=== PATIENT | female | born 1995 | race African-American/Black ===

== ENCOUNTER 2017-06-20 06:08 | Emergency (ER) | payer OTHER ==
[2017-06-20 06:36] LABS: Bilirubin Negative (Negative); Blood, Urine Negative (Negative); Clarity Clear (Clear); Glucose, Urine (Dipstick) Negative (Negative); Leukocyte Small (Negative); Nitrite Negative (Negative); Pregnancy Test - Urine (BHCG) Negative (Negative); Protein, Urine (Dipstick) Negative (Neg-Trace); Specific Gravity, Urine 1.025 (1.005-1.030); Urobilinogen 0.2 mg/dL (0.2-1.0)
[2017-06-20 06:37] LABS: Pregu Control Background? CLEAR/WHITE (CLR/WHITE); Pregu Control Bar Appear? YES (CONTROL BAR); Specific Gravity 1.025 (1.002-1.036)
[2017-06-20] MEDS ORDERED: Ondansetron ODT 4 MG TAB ONE (06:38)
[2017-06-20 07:01] LABS: Bacteria/HPF Rare-Few HPF (None Seen); Other Microscopic Description NO; RBC/HPF None Seen HPF (0-3); WBC/HPF 0-3 HPF (0-3)
== END 2017-06-20 07:06 | disposition home or self-care (01) ==
LOC: NAV ERS 06:08
DX: R11.2 Nausea with vomiting, unspecified (principal)
CPT/HCPCS: 81003; 81015; 81025; 99284; Q0162

== ENCOUNTER 2017-09-16 10:43 | Emergency (ER) | payer OTHER ==
[2017-09-16] MEDS ORDERED: Ondansetron ODT 4 MG TAB ONE (11:29)
[2017-09-16] MEDS ORDERED: Ketorolac Tromethamine 30 MG/ML VIAL ONE (11:33)
== END 2017-09-16 11:58 | disposition home or self-care (01) ==
LOC: NAV ERS 10:43
DX: G43.009 Migraine without aura, not intractable, without status migrainosus (principal)
CPT/HCPCS: 96372; J1885; Q0162

== ENCOUNTER 2018-03-09 00:02 | Emergency (ER) | payer OTHER ==
[2018-03-09] MEDS ORDERED: Ketorolac Tromethamine 60 MG/2 ML VIAL ONE (00:32)
[2018-03-09 00:47] LABS: Bilirubin Negative (Negative); Blood, Urine Large (Negative); Clarity Clear (Clear); Glucose, Urine (Dipstick) Negative (Negative); Leukocyte Trace (Negative); Nitrite Negative (Negative); Protein, Urine (Dipstick) 30 mg/dL (Neg-Trace); Urobilinogen 0.2 mg/dL (0.2-1.0)
[2018-03-09 00:51] LABS: Bacteria/HPF 1+ HPF (None Seen); Pregnancy Test - Urine (BHCG) Negative (Negative); RBC/HPF 21-50 HPF (0-3)
[2018-03-09 00:52] LABS: Pregu Control Background? CLEAR/WHITE (CLR/WHITE); Pregu Control Bar Appear? YES (CONTROL BAR)
== END 2018-03-09 01:09 | disposition home or self-care (01) ==
LOC: NAV ERS 00:02
DX: N94.6 Dysmenorrhea, unspecified (principal)
CPT/HCPCS: 81003; 81015; 81025; 96372; J1885

== ENCOUNTER 2018-04-06 18:40 | Emergency (ER) | payer OTHER ==
[2018-04-06 19:20] LABS: Bilirubin Small (Negative); Blood, Urine Trace (Negative); Glucose, Urine (Dipstick) Negative (Negative); Leukocyte Trace (Negative); Nitrite Negative (Negative); Protein, Urine (Dipstick) 100 mg/dL (Neg-Trace); Specific Gravity, Urine 1.025 (1.005-1.030)
[2018-04-06 19:26] LABS: Clarity SL HAZY (Clear)
[2018-04-06 19:27] LABS: Pregnancy Test - Urine (BHCG) Negative (Negative); Pregu Control Background? CLEAR/WHITE (CLR/WHITE); Pregu Control Bar Appear? YES (CONTROL BAR); Specific Gravity 1.025 (1.002-1.036)
[2018-04-06 19:40] LABS: Bacteria/HPF 1+ HPF (None Seen); RBC/HPF 0-3 HPF (0-3); Transitional Epithelial 0-3 HPF (0-3); WBC/HPF 0-3 HPF (0-3)
[2018-04-06] MEDS ORDERED: Cyclobenzaprine 10 MG TAB ONE (19:41)
== END 2018-04-06 20:03 | disposition home or self-care (01) ==
LOC: NAV ERS 18:40
DX: M54.5 Low back pain (principal)
CPT/HCPCS: 81003; 81015; 81025; 87086; 99283

== ENCOUNTER 2018-06-08 16:21 | Emergency (ER) | payer OTHER | END 2018-06-08 17:14 | disposition home or self-care (01) | LOC: NAV ERS 16:21 | DX: S39.012A Strain of muscle, fascia and tendon of lower back, initial encounter (principal); Z79.899 Other long term (current) drug therapy; X50.9XXA Other and unspecified overexertion or strenuous movements or postures, initial encounter; Y92.89 Other specified places as the place of occurrence of the external cause | CPT/HCPCS: 99283 ==

== ENCOUNTER 2018-07-17 19:33 | Emergency (ER) | payer OTHER, SELFPAY | END 2018-07-17 20:00 | disposition home or self-care (01) | LOC: NAV ERS 19:33 | DX: R51 Headache (principal) | CPT/HCPCS: 99283 ==

== ENCOUNTER 2018-08-08 18:54 | Emergency (ER) | payer OTHER, SELFPAY ==
[2018-08-08] MEDS ORDERED: Ibuprofen 200 MG TAB ONE (19:41)
== END 2018-08-08 19:48 | disposition home or self-care (01) ==
LOC: NAV ERS 18:54
DX: K00.6 Disturbances in tooth eruption (principal)
CPT/HCPCS: 99282

== ENCOUNTER 2018-09-01 02:26 | Emergency (ER) | payer OTHER | END 2018-09-01 03:01 | disposition home or self-care (01) | LOC: NAV ERS 02:26 | DX: M79.10 Myalgia, unspecified site (principal) | CPT/HCPCS: 99281 ==

== ENCOUNTER 2018-09-20 20:37 | Emergency (ER) | payer OTHER ==
[2018-09-20] MEDS ORDERED: Cyclobenzaprine 10 MG TAB ONE (21:28)
== END 2018-09-20 21:30 | disposition home or self-care (01) ==
LOC: NAV ERS 20:37
DX: S39.012A Strain of muscle, fascia and tendon of lower back, initial encounter (principal); X58.XXXA Exposure to other specified factors, initial encounter
CPT/HCPCS: 99283

== ENCOUNTER 2018-11-07 17:24 | Emergency (ER) | payer OTHER ==
[2018-11-07] MEDS ORDERED: Ondansetron ODT 4 MG TAB ONE (18:05)
[2018-11-07 18:12] LABS: Bilirubin Negative (Negative); Blood, Urine Negative (Negative); Clarity Clear (Clear); Glucose, Urine (Dipstick) Negative (Negative); Leukocyte Negative (Negative); Nitrite Negative (Negative); Protein, Urine (Dipstick) Negative (Neg-Trace); Urobilinogen 0.2 mg/dL (0.2-1.0)
[2018-11-07 18:25] LABS: Pregnancy Test - Urine (BHCG) Negative (Negative); Pregu Control Background? CLEAR/WHITE (CLR/WHITE); Pregu Control Bar Appear? YES (CONTROL BAR)
== END 2018-11-07 18:45 | disposition home or self-care (01) ==
LOC: NAV ERS 17:24
DX: B34.9 Viral infection, unspecified (principal)
CPT/HCPCS: 81003; 81025; 99284; Q0162

== ENCOUNTER 2018-12-06 07:08 | Emergency (ER) | payer OTHER ==
[2018-12-06 07:37] LABS: Bilirubin Negative (Negative); Blood, Urine Negative (Negative); Glucose, Urine (Dipstick) Negative (Negative); Leukocyte Negative (Negative); Nitrite Negative (Negative); Protein, Urine (Dipstick) Negative (Neg-Trace); Urobilinogen 0.2 mg/dL (0.2-1.0)
[2018-12-06] MEDS ORDERED: Ondansetron ODT 4 MG TAB ONE (07:37)
[2018-12-06 07:38] LABS: Clarity Hazy (Clear)
[2018-12-06 07:39] LABS: Pregnancy Test - Urine (BHCG) Negative (Negative); Pregu Control Background? CLEAR/WHITE (CLR/WHITE); Pregu Control Bar Appear? YES (CONTROL BAR); Specific Gravity 1.015 (1.002-1.036)
== END 2018-12-06 07:56 | disposition home or self-care (01) ==
LOC: NAV ERS 07:08
DX: R11.2 Nausea with vomiting, unspecified (principal); R10.30 Lower abdominal pain, unspecified
CPT/HCPCS: 81003; 81025; 99284; Q0162

== ENCOUNTER 2020-02-14 14:10 | Emergency (ER) | payer SELFPAY ==
[2020-02-14] MEDS ORDERED: Sodium Chloride 0.9% 1,000 ML ONE (14:29)
[2020-02-14] MEDS ORDERED: Ondansetron PF 4 MG/2 ML Vial ONE (14:29)
[2020-02-14 14:51] LABS: #Basophils 0.1 thou/uL (0.0-0.2); #Lymphocytes 1.8 thou/uL (1.20-3.40); #Monocytes 0.4 thou/uL (0.11-0.59); #Neutrophils 10.9 thou/uL (1.40-6.50); %Basophils 0.9 % (0.0-1.0); %Eosinophils 0.1 % (0.0-10.0); %Lymphocytes 13.3 % (21.0-51.0); %Monocytes 2.8 % (0.0-10.0); %Neutrophils 82.8 % (42.0-75.0); Hemoglobin 11.3 g/dL (12.0-16.0); Mean Corpuscular HGB CONC 30.7 g/dL (32.0-36.0); Mean Corpuscular Hemoglobin 23.6 pg (27.0-31.0); Mean Corpuscular Volume 76.9 fL (78.0-98.0); Mean Platelet Volume 8.8 fL (7.4-10.4); Platelet Count 197 thou/uL (130-400); Red Blood Cell (RBC) Count 4.78 mill/uL (4.20-5.40); White Blood Cell (WBC) Count 13.1 thou/uL (4.8-10.8)
[2020-02-14 14:52] LABS: ALT (SGPT) 10 U/L (8-55); AST (SGOT) 20 U/L (5-34); Albumin 4.7 g/dL (3.5-5.0); Alkaline Phosphatase 62 U/L (40-110); Anion Gap 21 mmol/L (10-20); BUN (Urea Nitrogen) 8 mg/dL (7.0-18.7); Bilirubin, Total 0.3 mg/dL (0.2-1.2); Calc. Creatinine Clearance 0 mL/min (70-130); Calcium 9.6 mg/dL (7.8-10.44); Carbon Dioxide 17 mmol/L (22-29); Chloride 105 mmol/L (98-107); Estimated GFR-MDRD Greater than 90; Globulin 3.4 g/dL (2.4-3.5); Glucose 135 mg/dL (70-105); Lipase 5 U/L (8-78); Potassium 3.2 mmol/L (3.5-5.1); Protein, Total 8.1 g/dL (6.0-8.3); Sodium 140 mmol/L (136-145)
[2020-02-14 14:58] LABS: BHCG - Serum Negative (NEGATIVE); Pregs Control Bar Appear? YES (CONTROL BAR)
[2020-02-14 15:13] LABS: Bilirubin Negative (Negative); Blood, Urine Negative (Negative); Clarity Clear (Clear); Glucose, Urine (Dipstick) Negative (Negative); Ketone, Urine Negative (Negative); Leukocyte Negative (Negative); Nitrite Negative (Negative); Protein, Urine (Dipstick) 100 mg/dL (Neg-Trace); Urobilinogen 0.2 mg/dL (Less than 2)
[2020-02-14 15:16] LABS: Specific Gravity, Urine Greater/Equal 1.030 (1.005-1.030)
[2020-02-14 15:18] LABS: Bacteria/HPF None Seen HPF (None Seen); Squamous Epithelial 0-3 HPF (0-3); WBC/HPF 0-3 HPF (0-3)
[2020-02-14 15:27] LABS: Hypochromia SLIGHT = 6-15 cells (100X) (0-5/hpf); MDiff Complete? YES; Microcytosis SLIGHT = 6-15 cells (100X) (0-5/hpf); Platelet Morphology Comment Appears Adequate
[2020-02-14] MEDS ORDERED: Potassium Chloride 20 MEQ TAB ONE (15:30)
== END 2020-02-14 15:48 | disposition home or self-care (01) ==
LOC: NAV ERS 14:10
DX: E87.6 Hypokalemia (principal); R11.2 Nausea with vomiting, unspecified; F32.9 Major depressive disorder, single episode, unspecified; Z79.899 Other long term (current) drug therapy
CPT/HCPCS: 80053; 81003; 81015; 83690; 84703; 85025; 96361; 96374; J2405; J7050

== ENCOUNTER 2020-09-25 13:31 | Emergency (ER) | payer SELFPAY ==
[2020-09-25] MEDS ORDERED: Ondansetron PF 4 MG/2 ML Vial ONE (14:07)
[2020-09-25] MEDS ORDERED: Sodium Chloride 0.9% 1,000 ML ONE (14:07)
[2020-09-25 14:13] LABS: Bilirubin Negative (Negative); Blood, Urine Trace (Negative); Clarity Clear (Clear); Glucose, Urine (Dipstick) Negative (Negative); Ketone, Urine Negative (Negative); Leukocyte Negative (Negative); Nitrite Negative (Negative); Protein, Urine (Dipstick) 100 mg/dL (Neg-Trace); Urobilinogen 0.2 mg/dL (Less than 2); pH, Urine 8.5 (5.0-9.0)
[2020-09-25 14:15] LABS: Bacteria/HPF Rare-Few HPF (None Seen); RBC/HPF 0-3 HPF (0-3); Squamous Epithelial 0-3 HPF (0-3); WBC/HPF None Seen HPF (0-3)
[2020-09-25 14:19] LABS: BHCG - Serum Negative (NEGATIVE); Pregs Control Bar Appear? YES (CONTROL BAR)
[2020-09-25 14:29] LABS: ALT (SGPT) 10 U/L (8-55); AST (SGOT) 17 U/L (5-34); Albumin 4.5 g/dL (3.5-5.0); Alkaline Phosphatase 64 U/L (40-110); Anion Gap 14 mmol/L (10-20); BUN (Urea Nitrogen) 9 mg/dL (7.0-18.7); Bilirubin, Total 0.3 mg/dL (0.2-1.2); Calc. Creatinine Clearance 0 mL/min (70-130); Calcium 9.3 mg/dL (7.8-10.44); Carbon Dioxide 24 mmol/L (22-29); Chloride 105 mmol/L (98-107); Globulin 3.3 g/dL (2.4-3.5); Glucose 101 mg/dL (70-105); Lipase 16 U/L (8-78); Potassium 3.4 mmol/L (3.5-5.1); Protein, Total 7.8 g/dL (6.0-8.3); Sodium 140 mmol/L (136-145)
[2020-09-25 14:36] LABS: Hemoglobin 11.1 g/dL (12.0-16.0); Lymphocytes 17 % (21-51); MDiff Complete? YES; Mean Corpuscular HGB CONC 29.5 g/dL (32.0-36.0); Mean Corpuscular Hemoglobin 23.1 pg (27.0-31.0); Mean Corpuscular Volume 78.6 fL (78.0-98.0); Mean Platelet Volume 9.2 fL (7.4-10.4); Monocytes 1 % (0-10); Neutrophil 82 % (42-75); Platelet Count 207 thou/uL (130-400); Platelet Morphology Comment Appears Adequate; RBC Distribution Width 16.3 % (11.5-14.5); RBC Morphology Normal; Red Blood Cell (RBC) Count 4.81 mill/uL (4.20-5.40); White Blood Cell (WBC) Count 7.3 thou/uL (4.8-10.8)
== END 2020-09-25 15:03 | disposition home or self-care (01) ==
LOC: NAV ERS 13:31
DX: R11.2 Nausea with vomiting, unspecified (principal)
CPT/HCPCS: 80053; 81003; 81015; 83690; 84703; 85025; 96374; J2405; J7050

== ENCOUNTER 2023-04-24 04:57 | Emergency (ER) | payer BC ==
[2023-04-24] MEDS ORDERED: Ibuprofen 200 MG TAB ONE (05:25)
== END 2023-04-24 05:33 | disposition home or self-care (01) ==
LOC: NAV ERS 04:57
DX: S29.012A Strain of muscle and tendon of back wall of thorax, initial encounter (principal); M54.12 Radiculopathy, cervical region; X50.1XXA Overexertion from prolonged static or awkward postures, initial encounter
CPT/HCPCS: 99283

== ENCOUNTER 2023-05-01 18:37 | Emergency (ER) | payer BC | END 2023-05-01 20:33 | disposition home or self-care (01) | LOC: NAV ERS 18:37 | DX: S29.012A Strain of muscle and tendon of back wall of thorax, initial encounter (principal); X50.0XXA Overexertion from strenuous movement or load, initial encounter; Y93.F2 Activity, caregiving, lifting; Y92.69 Other specified industrial and construction area as the place of occurrence of the external cause | CPT/HCPCS: 72072 ==

== ENCOUNTER 2023-07-24 19:31 | Emergency (ER) | payer BC ==
[2023-07-24] MEDS ORDERED: Ibuprofen 200 MG TAB ONE (19:53)
== END 2023-07-24 20:47 | disposition home or self-care (01) ==
LOC: NAV ERS 19:31
DX: B34.9 Viral infection, unspecified (principal); J06.9 Acute upper respiratory infection, unspecified
CPT/HCPCS: 87635; 87804; 99283

== ENCOUNTER 2023-09-07 04:14 | Emergency (ER) | payer BC ==
[2023-09-07] MEDS ORDERED: Ibuprofen 800 MG TAB ONE (05:25)
[2023-09-07 05:35] LABS: Pregnancy Test - Urine (BHCG) Negative (Negative); Pregu Control Background? CLEAR/WHITE (CLR/WHITE); Pregu Control Bar Appear? YES (CONTROL BAR)
[2023-09-07 05:41] LABS: Influenza A by NAA Not Detected (NotDetected); Influenza B by NAA Not Detected (NotDetected); SARS-CoV-2 NAA Rapid Test Not Detected (NotDetected)
== END 2023-09-07 05:58 | disposition home or self-care (01) ==
LOC: NAV ERS 04:14
DX: B34.9 Viral infection, unspecified (principal)
CPT/HCPCS: 81025; 87081; 87430; 99283

== ENCOUNTER 2023-10-06 04:39 | Emergency (ER) | payer BC | END 2023-10-06 05:05 | disposition home or self-care (01) | LOC: NAV ERS 04:39 | DX: M54.50 Low back pain, unspecified (principal); M54.6 Pain in thoracic spine | CPT/HCPCS: 99283 ==

== ENCOUNTER 2024-02-07 12:14 | Emergency (ER) | payer BC ==
[2024-02-07 13:34] LABS: #Basophils 0.1 thou/uL (0.0-0.2); #Lymphocytes 2.1 thou/uL (1.20-3.40); #Monocytes 0.5 thou/uL (0.11-0.59); #Neutrophils 5.3 thou/uL (1.40-6.50); %Basophils 1.1 % (0.0-1.0); %Eosinophils 0.2 % (0.0-10.0); %Lymphocytes 25.7 % (21.0-51.0); %Monocytes 6.5 % (0.0-10.0); %Neutrophils 66.3 % (42.0-75.0); Hematocrit 42.4 % (36.0-47.0); Hemoglobin 13.1 g/dL (12.0-16.0); Mean Corpuscular Hemoglobin 23.5 pg (27.0-31.0); Mean Corpuscular Volume 75.9 fl (78.0-98.0); Mean Platelet Volume 7.6 fL (7.4-10.4); Platelet Count 195 10x3/uL (130-400); RBC Distribution Width 14.2 % (11.5-14.5); Red Blood Cell (RBC) Count 5.59 mill/uL (4.20-5.40)
[2024-02-07] MEDS ORDERED: Ondansetron PF 4 MG/2 ML Vial ONE (13:53)
[2024-02-07] MEDS ORDERED: Sodium Chloride 0.9% 1,000 ML ONE (13:53)
[2024-02-07 14:20] LABS: Bilirubin Small (Negative); Blood, Urine Negative (Negative); Glucose, Urine (Dipstick) Negative (Negative); Ketone, Urine > or equal to 80 mg/dL (Negative); Leukocyte Negative (Negative); Nitrite Negative (Negative); Protein, Urine (Dipstick) 30 mg/dL (Neg-Trace); Specific Gravity, Urine 1.025 (1.005-1.030); pH, Urine 6.5 (5.0-9.0)
[2024-02-07 14:32] LABS: Clarity Hazy (Clear)
[2024-02-07 14:33] LABS: CAUTI Indications for Culture Pregnancy; Mucous/LPF 3+ LPF (<2+); RBC/HPF 0-3 HPF (0-3); Squamous Epithelial 0-3 HPF (0-3); Urine Culture Reflex Yes Yes; WBC/HPF 0-3 HPF (0-3)
[2024-02-07 14:34] LABS: Pregnancy Test - Urine (BHCG) POSITIVE (Negative); Pregu Control Background? CLEAR/WHITE (CLR/WHITE); Pregu Control Bar Appear? YES (CONTROL BAR); Specific Gravity 1.025 (1.002-1.036)
[2024-02-07 15:08] LABS: Albumin 4.1 g/dL (3.5-5.0); Bilirubin, Total 0.5 mg/dL (0.2-1.2); Calcium 9.5 mg/dL (7.8-10.44); Globulin 3.6 g/dL (2.4-3.5); Potassium 3.3 mmol/L (3.5-5.1); Protein, Total 7.7 g/dL (6.0-8.3)
== END 2024-02-07 16:25 | disposition home or self-care (01) ==
LOC: NAV ERS 12:14
DX: O21.0 Mild hyperemesis gravidarum (principal); O99.281 Endocrine, nutritional and metabolic diseases complicating pregnancy, first trimester; E86.0 Dehydration; Z3A.08 8 weeks gestation of pregnancy
CPT/HCPCS: 80053; 81001; 81025; 83690; 85025; 87086; 96361; 96365; 96375; J2405; J7030

== ENCOUNTER 2024-05-05 20:57 | Emergency (ER) | payer MEDICAID, OTHER ==
[2024-05-05] MEDS ORDERED: Metoclopramide HCl 10 MG (2 mL) VIAL ONE (21:41)
[2024-05-05] MEDS ORDERED: Acetaminophen 500 MG TAB ONE (21:41)
[2024-05-05] MEDS ORDERED: Sodium Chloride 0.9% 1,000 ML ONE (21:41)
[2024-05-05] MEDS ORDERED: diphenhydrAMINE 50 MG/ML VIAL ONE (21:41)
== END 2024-05-06 05:03 | disposition home or self-care (01) ==
LOC: NAV ERS 20:57
DX: O99.352 Diseases of the nervous system complicating pregnancy, second trimester (principal); G43.909 Migraine, unspecified, not intractable, without status migrainosus; Z3A.20 20 weeks gestation of pregnancy
CPT/HCPCS: 96374; 96375; J1200; J2765; J7030